=== PATIENT | female | born 1955 | race Two or more races ===

== ENCOUNTER → 2017-08-16 | Outpatient (CLI) | payer OTHER ==
--- NOTE | 2017-08-16 10:57 | RAD ---
CT of the chest without contrast 08/16/2017 Indication: Lung nodule. Comparison study: None available for review. Technique: Multidetector CT imaging of the chest was performed without the administration of IV contrast. Findings: Heart size is normal. No pericardial effusion is identified. No pathologically enlarged mediastinal lymph nodes are appreciated. There is no pneumothorax, pleural effusion, or acute appearing infiltrate. There is a 6 mm noncalcified nodule in the basilar right lower lobe (axial image 41). Limited visualization of the upper abdomen is grossly unremarkable. No acute osseous abnormalities are identified. Mild degenerative changes of the thoracic spine are noted. Impression: 6 mm noncalcified nodule basilar right lower lobe. Recommend CT surveillance as described below. Fleischner society pulmonary nodule recommendations 2017 guidelines Solid nodules Solitary nodule size: <6 mm low risk patients: no follow-up needed high risk patients: optional CT at 12 months Solitary nodule size: 6-8 mm low risk patients: follow-up at 6-12 months, then consider further follow-up at 18-24 months high risk patients: initial follow-up CT at 6-12 months and then at 18-24 months if no change Solitary nodule size: >8 mm either low or high risk patients consider follow-up CT at 3 months, and/or CT-PET, and/or biopsy Multiple nodules size: <6 mm low risk patients: no routine follow-up high risk patients: optional CT at 12 months Multiple nodules size: 6-8 mm low risk patients: follow-up at 3-6 months, then consider further follow-up at 18-24 months high risk patients: follow-up at 3-6 months, then at 18-24 months if no change Multiple nodules size: >8 mm low risk patients: follow-up at 3-6 months, then consider further follow-up at 18-24 months high risk patients: follow-up at 3-6 months, then at 18-24 months if no change Note: newly detected indeterminate nodule in persons 35 years of age or older. Low risk patients: minimal or absent history of smoking and or other known risk factors high risk patients: history of smoking or of other known risk factors (e.g. first degree relative with lung cancer, or exposure to asbestos, radon, uranium) nodule up to 8 mm is partly solid or is ground glass further follow-up is required after 24 months to exclude possible slow growing adenocarcinoma (CHRISTIE) PQRS Compliance Statement: One or more of the following individualized dose reduction techniques were utilized for this examination: 1. Automated exposure control 2. Adjustment of the mA and/or kV according to patient size 3. Use of iterative reconstruction technique
== END | disposition home or self-care (01) ==
LOC: CT 10:04
PROVIDERS: ATTEND Internal Medicine Critical Care Medicine
DX: R91.8 Other nonspecific abnormal finding of lung field (principal)
CPT/HCPCS: 71250

== ENCOUNTER → 2018-01-31 | Outpatient (CLI) | payer OTHER | END | disposition home or self-care (01) | LOC: CT 10:01 | DX: R91.1 Solitary pulmonary nodule (principal) | CPT/HCPCS: 71250 ==

== ENCOUNTER → 2018-07-31 | Outpatient (CLI) | payer OTHER ==
--- NOTE | 2018-07-31 11:31 | RAD ---
EXAM: Chest CT without intravenous contrast. HISTORY: Pulmonary nodule follow-up. TECHNIQUE: Computed tomographic images of the chest were obtained without contrast. Multiplanar reformatting was performed. *One or more of the following individualized dose reduction techniques were utilized for this examination: 1. Automated exposure control. 2. Adjustment of the mA and/or kV according to patient size. 3. Use of iterative reconstruction technique. COMPARISON: 01/31/2018 and 08/16/2017. FINDINGS: There is no infiltrate, pleural effusion or pneumothorax. There is a stable 6 mm nodule within the lateral right lower lobe. There are stable 2 mm and 4 mm nodules within the medial and posterior right lower lobe. There are few stable small pleural-based nodular opacities likely due to subsegmental atelectasis. The heart is normal in size. The aorta is normal in caliber. There is no lymphadenopathy. The upper abdomen is unremarkable. There is no suspicious osseous lesion. IMPRESSION: 1. Stable right lower lobe pulmonary nodules, the largest of which measures 6 mm. The nearly 1 year course of stability favors benignity. However, continued follow-up can be performed according to Fleischner Society criteria to confirm a two-year course of stability. 2. No acute thoracic finding. Fleischner Society recommendations (Radiology 2005; 237; 395-400): In a low risk patient: <4mm - No follow up required. >4-6mm- 12 month follow up, if unchanged, no further follow up. >6-8mm- 6-12 month follow up, then at 18-24 months if no change. >8mm- 3, 9, 24 month follow up or consideration of PET/CT. In a high risk patient: <4mm - 12 month follow up, if unchanged then no further follow up. >4-6mm- 6-12 month follow up, then at 18-24 months if no change. >6-8mm- 3-6 month follow up, then at 9-12 months and 24 months if no change >8mm- Same as for low risk patient. Electronically signed by: Zee Najera MD (07/31/2018 11:28 AM) [id number]
== END | disposition home or self-care (01) ==
LOC: CT 11:03
PROVIDERS: ATTEND Internal Medicine Critical Care Medicine
DX: R91.8 Other nonspecific abnormal finding of lung field (principal)
CPT/HCPCS: 71250

== ENCOUNTER → 2019-08-13 | Outpatient (CLI) | payer OTHER ==
--- NOTE | 2019-08-13 18:11 | RAD ---
Examination: CT CHEST WO CONTRAST History: Lung nodule Comparison/Correlation: 08/16/2017, 02/10/2018, 07/31/2018 CT chest without contrast Findings: Axial images of chest were obtained without contrast. Sagittal and coronal reformatted images were provided. Interval development of a nodule at the right anterior lung base which is irregular in contour is present measuring up to 0.7 cm diameter. Subtle surrounding interstitial thickening noted bilaterally. This finding is present on axial image 196 of series 8. The right lateral lung base, there is a nodule which has remained measuring up to 0.55 cm. Few punctate nodules are present involving the lower lung hirsch are stable. Tracheobronchial tree is unremarkable. No pleural or pericardial effusion. Bony structures are unremarkable. The visualized upper abdomen is unremarkable. Impression: New right lung basilar nodule which is irregularly marginated. Infectious or primary neoplastic etiology may account for this finding. This finding is slightly below the limits in size for PET resolution. Interval follow-up to assess stability or possibly tissue sampling is recommended. Correlation clinically is required. Other pulmonary nodules are stable for nearly 2 years. Benign etiology presumed as a result. PQRS Compliance Statement: One or more of the following individualized dose reduction techniques were utilized for this examination: 1. Automated exposure control 2. Adjustment of the mA and/or kV according to patient size 3. Use of iterative reconstruction technique Electronically signed by: Brant Bray MD (08/13/2019 6:09 PM) [facility]
== END | disposition home or self-care (01) ==
LOC: CT 10:17
PROVIDERS: ATTEND Internal Medicine Critical Care Medicine
DX: J92.9 Pleural plaque without asbestos (principal); R91.8 Other nonspecific abnormal finding of lung field
CPT/HCPCS: 71250

== ENCOUNTER → 2020-01-29 | Outpatient (CLI) | payer OTHER ==
--- NOTE | 2020-01-29 13:11 | RAD ---
CT CHEST WO CONTRAST Indication: Lung nodule Technique: Noncontrast CT imaging was performed of the chest, multiplanar reconstruction images submitted. One or more of the following individualized dose reduction techniques were utilized for this examination: 1. Automated exposure control 2. Adjustment of the mA and/or kV according to patient size 3. Use of iterative reconstruction technique. Comparison: August 13, 2019 Findings: 5 mm right lower lobe nodule image 40 series 2 is stable. The previously seen right lower lobe nodule which was new since older exams has significantly decreased in size, now about 2 mm versus previously about 7 mm. Small 2 mm right lower lobe nodule was 33 series 2 is stable, also 2 mm right lower lobe nodule which 29 unchanged. A couple of tiny right middle lobe nodules best seen image 34 are unchanged. Small 3 mm left upper lobe nodule image 38 is similar. No new pulmonary nodularity is identified. There is no new infiltrate, pleural or pericardial fluid, or pneumothorax. No new significantly enlarged nodes are identified of the chest. Thoracic aortic caliber is within normal limits. IMPRESSION: 1. Previously seen right lower lobe nodule has significantly decreased in size, other nodules similar. If there are increased risk factors for neoplasm such as smoking history, continued surveillance of the nodules such as in one year could be indicated. Electronically signed by: Gavin Cobb MD (01/29/2020 1:08 PM) [id number]
== END | disposition home or self-care (01) ==
LOC: CT 10:30
PROVIDERS: ATTEND Internal Medicine Critical Care Medicine
DX: R91.8 Other nonspecific abnormal finding of lung field (principal)
CPT/HCPCS: 71250

== ENCOUNTER → 2021-06-30 | Outpatient (CLI) | payer OTHER ==
--- NOTE | 2021-06-30 12:20 | RAD ---
EXAM: Chest CT without intravenous contrast. HISTORY: Pulmonary nodule. TECHNIQUE: Computed tomographic images of the chest were obtained without contrast. Multiplanar refor matting was performed. *One or more of the following individualized dose reduction techniques were utilized for this examina tion: 1. Automated exposure control. 2. Adjustment of the mA and/or kV according to patient size. 3. Use of iterative reconstruction technique. COMPARISON: 01/29/2020 and 08/13/2019. FINDINGS: The heart is normal in size. The aorta is normal in caliber. No pathologically enlarged lym ph node is seen. There is no pneumothorax, pleural effusion or infiltrate. There is a stable 5 mm nodule within the lateral right lower lobe (series 3, image 202). There is a s table 3 mm nodule within the right lower lobe (series 3, image 196) there is a stable 2 mm groundglas s nodule within the posterior left lower lobe (series 3, image 218) there is a stable 4 mm pleural-ba sed nodule within the posterior right upper lobe (series 3, image 77). There are few additional simil ar-appearing benign areas of pleural nodularity likely due to atelectasis or scarring. There is media l right middle lobe and lingular scarring. There is no acute finding involving the upper abdomen. There is no acute or suspicious osseous findin g. There are degenerative changes involving the spine. IMPRESSION: 1. Small bilateral pulmonary nodules measuring up to 5 mm, stable in appearance. Follow-up in one yea r is recommended. 2. No acute thoracic finding. Electronically signed by: Zee Najera MD (06/30/2021 12:18 PM) [id number]
== END ==
LOC: CT 10:37
PROVIDERS: ATTEND Internal Medicine Critical Care Medicine
DX: R91.8 Other nonspecific abnormal finding of lung field (principal); M47.819 Spondylosis without myelopathy or radiculopathy, site unspecified
CPT/HCPCS: 71250